=== PATIENT | female | born 1990 | race African-American/Black ===

== ENCOUNTER 2023-03-22 23:50 | Emergency (ER) | payer MEDICAID ==
[2023-03-23 00:16] VITALS: PULSE 57
== END 2023-03-23 00:40 | disposition left against medical advice (07) ==
LOC: ER 23:50
DX: Z53.21 Procedure and treatment not carried out due to patient leaving prior to being seen by health care provider (principal)
CPT/HCPCS: 99281

== ENCOUNTER 2023-03-23 05:00 | Emergency (ER) | payer MEDICAID ==
[~2023-03-23] VITALS: Ht 162.6 cm; Wt 49.0 kg
[2023-03-23 05:19] VITALS: BP 134/89; PULSE 75; RESP 18; TEMP 97.8; O2SAT 98
== END 2023-03-23 08:54 ==
LOC: ER 05:17
DX: F41.9 Anxiety disorder, unspecified (principal); J45.909 Unspecified asthma, uncomplicated; Z98.890 Other specified postprocedural states
CPT/HCPCS: 81025; 99282